=== PATIENT | female | born 1970 | race Caucasian/White ===

== ENCOUNTER 2020-05-02 17:45 | Emergency (ER) | payer BC ==
[~2020-05-02] VITALS: Ht 157.5 cm; Wt 90.7 kg
[~2020-05-02 17:45] MED LIST: ACETAMINOPHEN-1 EAC1 PO; BACTRIM DS TAB1 EACH PO; BENTYL; BENTYL 20 MG TA20 M1 PO; FEVER REDU160 MG/5 M; FLEXERIL PO; FLOMAX0.4 MG PO; HYDROCODONE-AP1 EAC6 PO; NIGHT TIME COL180 ML; NORCO 5-325 TA1 EACH PO; PERCOCET 5-3251 EACH PO; PHENERGAN 25 MG25 M1 PO; PREDNISONE 20 M20 M1 PO; SPIRIVA18 MCG INH; SYMBICORT80 MCG/4.1 INH; TAMIFLU75 MG PO; VENTOLIN HFA 1818 GM INH; ZOFRAN4 MG PO; ZPAK PO
[2020-05-02] MEDS ORDERED: NEURONTIN 300M300 M2 PO (17:55)
[2020-05-02] MEDS ORDERED: LORCET 5-325 M1 EACH PO (17:55)
[2020-05-02] MEDS ORDERED: ROXICODONE5 M2 PO (17:56)
[2020-05-02] MEDS ORDERED: TRAMADOL 50 MG50 MG PO (17:56)
[2020-05-02 18:32] LABS: ABSOLUTE BASOPHILS 0.1 thou/uL (0.0-0.2); ABSOLUTE EOSINOPHILS 0.5 thou/uL (0.0-0.7); ABSOLUTE LYMPHOCYTES 1.9 thou/uL (0.8-5.3); ABSOLUTE MONOCYTES 0.4 thou/uL (0.0-1.2); ABSOLUTE NEUTROPHILS 6.7 thou/uL (1.6-8.1); BASOPHILS 1.1 %; EOSINOPHILS 5.5 %; HEMATOCRIT 37.2 % (37.0-47.0); HEMOGLOBIN 12.7 gm/dL (12.0-15.0); LYMPHOCYTES 19.6 %; MCH 30.7 pg (26.0-34.0); MCHC 34.1 g/dL (28.0-37.0); MCV 90.2 fL (80.0-100.0); MONOCYTES 4.4 %; MPV 7.9 fl. (7.2-11.1); NUCLEATED RBCS 0 /100WBC; PLATELET COUNT* 355 thou/uL (150-400); POLYS 69.4 %; RBC 4.13 mil/uL (4.20-5.00); RDW-CV 13.8 % (10.5-14.5); WBC 9.7 thou/uL (4.0-11.0)
[2020-05-02 18:35] LABS: URINE BILIRUBIN NEGATIVE (Negative); URINE BLOOD NEGATIVE (Negative); URINE CLARITY CLEAR; URINE COLOR YELLOW; URINE GLUCOSE-RANDOM NEGATIVE (Negative); URINE KETONES NEGATIVE (Negative); URINE LEUKOCYTES-REFLEX NEGATIVE (Negative); URINE NITRITE-REFLEX NEGATIVE (Negative); URINE PROTEIN NEGATIVE (Negative); URINE SPECIFIC GRAVITY 1.025 (1.005-1.030); URINE UROBILINOGEN 0.2 E.U./dl (0.2-1.0)
[2020-05-02 18:41] LABS: CALCIUM 8.7 mg/dL (8.5-10.1); CREATININE 1.2 mg/dL (0.6-1.3); POTASSIUM 3.5 mmol/L (3.5-5.1)
[2020-05-02 18:48] LABS: AMP/METHAMP POSITIVE (Negative); BARBITURATES Negative (Negative); BENZODIAZEPINES Negative (Negative); COCAINE Negative (Negative); METHADONE Negative (Negative); OPIATES Negative (Negative); PCP Negative (Negative); THC Negative (Negative)
[2020-05-02 18:57] LABS: ALBUMIN 3.6 g/dL (3.4-5.0); MAGNESIUM 1.9 mg/dL (1.8-2.4); TOTAL BILIRUBIN 0.3 mg/dL (<0.1-1.0); TOTAL PROTEIN 7.5 g/dL (6.4-8.2)
[2020-05-02 21:12] VITALS: BP 122/68
--- NOTE | 2020-05-04 11:04 | EKG ---
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: S : 1970 Requested By: Elijah Cortez Order Number: [id number] MD: Sohan Hernandez Measurements Intervals [place] Rate: 112 P: 71 AL: 165 QRS: 8 QRSD: 79 T: 34 QT: 329 QTc: 449 Interpretive Statements Sinus tachycardia Consider right atrial enlargement Abnormal R-wave progression, early transition Compared to ECG 11/23/2014 08:40:14 No significant changes Electronically Signed On 05-04-2020 11:04:10 CDT by Sohan Hernandez [email or web address] <ELECTRONICALLY SIGNED> By: Sohan Hernandez MD, [facility] 05/04/20 1104 1750 1750 Sohan Hernandez MD, [facility] /EPI
== END 2020-05-02 21:12 | disposition home or self-care (01) ==
LOC: M.ERS 17:45
PROVIDERS: Emergency Medicine Emergency Medical Services
DX: R07.89 Other chest pain (principal); J44.9 Chronic obstructive pulmonary disease, unspecified; K58.9 Irritable bowel syndrome, unspecified; F17.210 Nicotine dependence, cigarettes, uncomplicated; Z90.710 Acquired absence of both cervix and uterus; Z88.8 Allergy status to other drugs, medicaments and biological substances; Z98.51 Tubal ligation status; Z79.899 Other long term (current) drug therapy